=== PATIENT | female | born 1980 | race Caucasian/White ===

== ENCOUNTER → 2022-03-09 | Outpatient (CLI) | payer OTHER | LOC: M PLALAB 09:00 | PROVIDERS: ATTEND Internal Medicine Hematology | DX: I82.5Z9 Chronic embolism and thrombosis of unspecified deep veins of unspecified distal lower extremity (principal) ==

== ENCOUNTER → 2024-08-15 | Outpatient (CLI) | payer BC, OTHER | LOC: M SOG 07:49 | PROVIDERS: ATTEND Physician Assistant | DX: M25.532 Pain in left wrist (principal) ==